=== PATIENT | female | born 1960 | race Caucasian/White ===

== ENCOUNTER → 2020-05-30 14:11 | Outpatient (CLI) | payer BC | END | disposition home or self-care (01) | LOC: D.LABREF 14:11 | PROVIDERS: ATTEND Internal Medicine Gastroenterology | DX: R10.11 Right upper quadrant pain (principal); R19.7 Diarrhea, unspecified; R14.0 Abdominal distension (gaseous) ==

== ENCOUNTER → 2020-06-01 19:35 | Outpatient (CLI) | payer BC | END | disposition home or self-care (01) | LOC: D.LABREF 19:35 | PROVIDERS: ATTEND Internal Medicine Gastroenterology | DX: R10.0 Acute abdomen (principal) ==